=== PATIENT | female | born 1955 | race Caucasian/White ===

== ENCOUNTER → 2016-12-04 | Outpatient (CLI) | payer OTHER ==
[~2016-12-04] MED LIST: ALBUTEROL17 GM INH; AMLODIPINE BESYL5 MG PO; ANORO ELLIPTA1 EACH; BENZONATATE; COZAAR100 MG; DAYQUIL; DELTASONE20 MG PO; DICYCLOMINE HCL10 MG PO; EQUATE PO; FISH OIL 1,0001 CA2 PO; FISH OIL300 MG PO; FLEXERIL10 MG PO; GAS-X ULTRA ST180 MG PO; GREEN TEA SLIM PO; HYDROCHLOROTH12.5 MG PO; HYDROCODON-ACE1 EAC9 PO; IBUPROFEN800 MG PO; IMITREX25 MG PO; LASIX20 MG PO; LEVO-T125 MCG; LEVOTHYROXINE137 MCG PO; LEVOTHYROXINE150 MCG PO; LEVOXYL0.137 MG PO; LEVOXYL150 MC1 PO; LIPITOR40 MG; LIPITOR40 MG PO; LISINOPRIL PO; LISINOPRIL20 MG PO; LORTAB 5/500 TA1 TA1 PO; MEDI-MECLIZINE25 M1 PO; MOTION SICKNESS25 M4 PO; MOTRIN600 M2 PO; NYQUIL; OMEPRAZOLE20 M1; OSTEO BI-FLEX1 EAC4; PRAVASTATIN SOD40 MG PO; RANITIDINE HCL150 M1 PO; SIMVASTATIN40 MG PO; SYNTHROID0.15 MG PO; SYNTHROID125; SYNTHROID125 PO; TIZANIDINE HCL4 M1 PO; TYLOX 5-500 CA1 EACH PO; VITAMIN D50000 UNIT PO; ZESTRIL40 MG PO; ZITHROMAX PO
--- NOTE | ~2016-12-04 | CT57 ---
[facility] A Service of [facility] & [facility] RADIOLOGY TEXT RESULTS PATIENT: CAROLYN GELLER LOCATION: [facility] : 54 UNIT #: [id number] AGE: [address]: Nu Jackson SEX: F ORDER DR: [id number] [facility] [address] [place], [place] [address] [id number] O MR#: [id number] Acc #: [id number] NAME: CAROLYN GELLER : 1955 SEX: F STUDY DATE/TIME: 12/04/2016 9:17 UNIT: [facility] EDT ROOM: STUDY DESCRIPTION: CT Chest Wo Cont Attending Physician: Nu Jackson A.P.R.N. Referring Physician: Nu Jackson A.P.R.N. Ordering Physician: Nu Jackson A.P.R.N. Primary Care Physician: Petra Villatoro M.D. MEDICAL IMAGING REPORT This report is preliminary unless electronic signature is present EXAM CT chest without contrast INDICATIONS Cough for the past 2 months with shortness of air. PROCEDURE Noncontrast CT chest COMPARISON 12/22/2014. This CT exam was performed with one or more of the following radiation dose reduction techniques: automatic exposure control, adjustment of mA and/or kV according to patient size, and iterative reconstruction. FINDINGS No dense consolidation. Linear opacities right middle lobe, right lower lobe and left lower lobe. These are in keeping with scarring or atelectasis. No pleural fluid or pneumothorax. No adenopathy. There is a common duct stent in place partially included. No acute findings in the upper abdomen. No aggressive appearing bone lesion. IMPRESSION 1. No acute findings in the chest. 2. Linear atelectasis or scarring in both lung bases is similar to the previous study. Dictated by... Mitchel Shelton M.D. THIS IS AN ELECTRONICALLY VERIFIED REPORT Mitchel Shelton M.D. at 12/04/2016 4:52 PM [facility] A Service of [facility] & [facility] RADIOLOGY TEXT RESULTS PATIENT: CAROLYN GELLER LOCATION: [facility] : 54 UNIT #: [id number] AGE: [address]: Nu Jackson SEX: F ORDER DR: Terence TD: 12/04/2016 12:07 JOB #: [id number] MEDICAL IMAGING REPORT COPY
== END | disposition home or self-care (01) ==
LOC: CCAT 08:22
DX: R91.8 Other nonspecific abnormal finding of lung field (principal); R07.9 Chest pain, unspecified; R06.00 Dyspnea, unspecified; R05 Cough
CPT/HCPCS: 71250

== ENCOUNTER → 2016-12-19 | Outpatient (CLI) | payer OTHER ==
--- NOTE | ~2016-12-19 | MY11 ---
[facility] A Service of [facility] RADIOLOGY TEXT RESULTS PATIENT: CAROLYN GELLER [facility] 54 UNIT #: [id number] AGE: [address]: Petra Villatoro MD SEX: F ORDER DR: [id number] [facility] [address]. [place], [place] [address] [id number] O MR#: [id number] Acc #: [id number] NAME: CAROLYN GELLER : 1955 SEX: F STUDY DATE/TIME: 12/19/2016 10:54 [facility] ROOM: STUDY DESCRIPTION: MY Mammogram Screening Dig [place] Attending Physician: Petra Villatoro M.D. Ordering Physician: Petra Villatoro M.D. Primary Care Physician: Petra Villatoro M.D. MEDICAL IMAGING REPORT This report is preliminary unless electronic signature is present EXAM Digital screening mammogram 12/19/2016 HISTORY 61-year-old woman. No risk elevation. Annual screen. COMPARISON Outside mammograms from [facility] now available date 09/21/2015. FINDINGS Digital imaging of each breast was completed utilizing screening protocol. Review includes FDA-approved CAD device. Breast parenchyma is fatty-replaced. There is no suspicious breast mass. Occasional benign punctate calcification anterior third right breast upper, outer aspect. No suspicious mass. There is no architectural disturbance. IMPRESSION Negative mammogram. Annual screening recommended. Patient's over the age of 40 are entered into a reminder system with target due date for the next mammogram. BIRADS: 1 Negative Dictated by... Fernando Chery M.D. THIS IS AN ELECTRONICALLY VERIFIED REPORT Fernando Chery M.D. at 12/21/2016 8:04 AM DANIEL/waqar TD: 12/20/2016 16:18 [facility] A Service of [facility] RADIOLOGY TEXT RESULTS PATIENT: CAROLYN GELLER [facility] 54 UNIT #: [id number] AGE: [address]: Petra Villatoro MD SEX: F ORDER DR: JOB #: [id number] MEDICAL IMAGING REPORT COPY
== END | disposition home or self-care (01) ==
LOC: CWCC 10:07
DX: Z12.31 Encounter for screening mammogram for malignant neoplasm of breast (principal)
CPT/HCPCS: G0202

== ENCOUNTER → 2016-12-28 | Outpatient (CLI) | payer OTHER ==
--- NOTE | ~2016-12-28 | PFT ---
[id number] [facility] [address] [place] [address] [facility]. [place], [place] [address] [id number] O MR#: [id number] NAME: CAROLYN GELLER ROOM: SEX: F STUDY DATE/TIME: 01/26/2017 : 1955 AGE: 61 STUDY DESCRIPTION: Attending Physician: aTra Brizuela M.D. Referring Physician: Tara Brizuela M.D. Primary Care Physician: Petra Villatoro M.D. PULMONARY DIAGNOSTIC REPORT EXAM Pulmonary Function Study FINDINGS The patient used 2 inhalers on day of test so please interpret bronchodilator response with caution. The test meets ATS criteria for acceptability and repeatability. Please see scanned sheet for flow volume loops and actual lung volume values. Spirometry shows mild obstruction with good bronchodilator response. Diffusion capacity is low normal. PFT is consistent with moderate to severe COPD. Dictated by... Mihai Galindo TD: 01/26/2017 20:51 JOB #: [id number] PULMONARY DIAGNOSTIC REPORT Page 1 of 1
== END | disposition home or self-care (01) ==
LOC: CRC 12:23
DX: J44.9 Chronic obstructive pulmonary disease, unspecified (principal); K21.9 Gastro-esophageal reflux disease without esophagitis; G47.34 Idiopathic sleep related nonobstructive alveolar hypoventilation; R07.9 Chest pain, unspecified; Z87.891 Personal history of nicotine dependence
CPT/HCPCS: 94060; 94726; 94729

== ENCOUNTER 2017-01-22 13:11 | Emergency (ER) | payer OTHER ==
--- NOTE | ~2017-01-22 | CR278 ---
[facility] A Service [facility] RADIOLOGY TEXT RESULTS PATIENT: CAROLYN GELLER LOCATION: SED : 54 UNIT #: [id number] AGE: [address]: Ashley Fried APRN SEX: F ORDER DR: [id number] [address] [address] [id number] E MR#: [id number] Acc #: [id number] NAME: CAROLYN GELLER : 1955 SEX: F STUDY DATE/TIME: 01/22/2017 12:56 UNIT: SED ROOM: STUDY DESCRIPTION: CR Wrist 2 View Lt Attending Physician: Ashley Fried A.P.R.N. Ordering Physician: Ashley Dan A.P.R.N. Primary Care Physician: Petra Villatoro M.D. MEDICAL IMAGING REPORT This report is preliminary unless electronic signature is present. EXAM Left wrist 01/22/2017 HISTORY 61-year-old female in the ED complaining of left wrist and left shoulder pain beginning about 3 days ago. No reported acute injury. TECHNIQUE Limited two-view left wrist series. FINDINGS No fracture, dislocation or other acute osseous abnormality. 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 IMPRESSION 1. No acute osseous abnormality. 2. 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 Dictated by... Jaswant Morales M.D. THIS IS AN ELECTRONICALLY VERIFIED REPORT Jaswant Morales M.D. at 01/22/2017 3:58 PM LEXY/preethi TD: 01/22/2017 14:17 JOB #: [id number] [facility] A Service [facility] RADIOLOGY TEXT RESULTS PATIENT: CAROLYN GELLER LOCATION: SED : 54 UNIT #: [id number] AGE: [address]: Ashley Fried APRN SEX: F ORDER DR: MEDICAL IMAGING REPORT Page 1 of 1
--- NOTE | ~2017-01-22 | CR229 ---
[facility]. [facility] A Service of [facility] & [facility] RADIOLOGY TEXT RESULTS PATIENT: CAROLYN GELLER LOCATION: SED : 54 UNIT #: [id number] AGE: [address]: Ashley Fried APRN SEX: F ORDER DR: [id number] [address] [address] [id number] E MR#: [id number] Acc #: [id number] NAME: CAROLYN GELLER : 1955 SEX: F STUDY DATE/TIME: 01/22/2017 12:56 UNIT: SED ROOM: STUDY DESCRIPTION: CR Shoulder Min 2 View Lt Attending Physician: Ashley Fried A.P.R.N. Ordering Physician: Ashley Dan A.P.R.N. Primary Care Physician: Petra Villatoro M.D. MEDICAL IMAGING REPORT This report is preliminary unless electronic signature is present. EXAM Left shoulder series, 01/22/2017 HISTORY 61-year-old female in the ED complaining of 3-day history of left wrist and left shoulder pain. No reported acute injury. TECHNIQUE Three-view left shoulder series. FINDINGS Examination is negative. No fracture, dislocation, arthropathy or other osseous abnormality is demonstrated. IMPRESSION Negative left shoulder series. Dictated by... Jaswant Morales M.D. THIS IS AN ELECTRONICALLY VERIFIED REPORT Jaswant Morales M.D. at 01/22/2017 3:58 PM Iman TD: 01/22/2017 14:28 JOB #: [id number] MEDICAL IMAGING REPORT Page 1 of 1
== END 2017-01-22 14:19 | disposition home or self-care (01) ==
LOC: SED 13:11
DX: M13.832 Other specified arthritis, left wrist (principal); M75.92 Shoulder lesion, unspecified, left shoulder; I10 Essential (primary) hypertension; Z90.49 Acquired absence of other specified parts of digestive tract; Z79.899 Other long term (current) drug therapy
CPT/HCPCS: 73030; 73100; 99284

== ENCOUNTER 2017-02-28 14:02 | Emergency (ER) | payer OTHER ==
[2017-02-28 15:41] LABS: BASOPHIL# 0.1 X10e3 (0-0.3); BASOPHIL% 1.1 % (0-2.5); EOSINOPHIL# 0.3 X10e3 (0-0.7); EOSINOPHIL% 4.2 % (0.0-7.0); HEMATOCRIT 42.4 % (35.0-45.0); HEMOGLOBIN 14.2 gm/dL (12.0-16.0); LYMPHOCYTE# 1.9 X10e3 (1.0-3.5); LYMPHOCYTE% 22.5 % (17.0-45.0); MEAN CELL VOLUME 86.2 FL (83-96); MEAN CORPUSCULAR HEMOGLOBIN 28.8 PG (28-34); MEAN CORPUSCULAR HGB CONC 33.4 g/dL (30-36); MEAN PLATELET VOLUME 7.8 FL (6.5-11.5); MONOCYTE# 0.5 X10e3 (0-1.0); MONOCYTE% 5.5 % (3.0-12.0); NEUTROPHIL# 5.5 X10e3 (1.5-7.1); NEUTROPHIL% 66.7 % (40-75); PLATELET COUNT 258 X10e3 (140-420); RED BLOOD COUNT 4.92 X10e (3.90-5.30); RED CELL DISTRIBUTION WIDTH 13.2 % (11.0-15.5); WHITE BLOOD COUNT 8.2 X10e3 (4.0-10.5)
[2017-02-28 15:43] LABS: DIFF IND NO
[2017-02-28 16:28] LABS: ALBUMIN SERUM 4.5 g/dL (3.5-5.0); BILIRUBIN, DIRECT 0.1 mg/dL (0.0-0.2); BILIRUBIN,INDIRECT 1.2 mg/dL (0.0-0.9); BILIRUBIN,TOTAL 1.3 mg/dL (0.2-2.0); PROTEIN TOTAL SERUM 7.4 g/dL (6.0-8.3)
[2017-02-28 17:37] LABS: URINE SOURCE CLEAN CATCH
[2017-02-28 17:53] LABS: URINE APPEARANCE CLEAR; URINE BILIRUBIN NEG (NEG); URINE BLOOD 1+ (NEG); URINE COLOR YELLOW; URINE GLUCOSE NEG (NEG); URINE KETONE NEG (NEG); URINE LEUKOCYTE ESTERASE NEG (NEG); URINE NITRATE NEG (NEG); URINE PROTEIN NEG (NEG); URINE SPECIFIC GRAVITY 1.009 (1.003-1.035); URINE UROBILINOGEN 0.2 MG/DL (NEG)
[2017-02-28 17:58] LABS: URBCS1 AUWI 0-2 /[HPF] (0-2); URINE BACTERIA AUWI NEG (NEGATIVE); URINE SQUAMOUS EPITHELIAL CELL NONE SEEN /[HPF]; UWBCS1 AUWI 0-2 (0-5)
[2017-02-28 18:13] LABS: CULTURE INDICATED? NO
[2017-02-28 20:14] LABS: BUN/CREATININE RATIO 15.55; CALCIUM SERUM 9.5 mg/dL (8.4-10.2); CREATININE SERUM 0.9 mg/dL (0.6-1.4); GLOM FILT RATE Estimated 68.6 mL/min (>60); POTASSIUM 3.8 mmol/L (3.5-5.1)
== END 2017-02-28 22:04 | disposition home or self-care (01) ==
LOC: CED 14:02
PROVIDERS: Emergency Medicine
DX: R07.89 Other chest pain (principal); K21.9 Gastro-esophageal reflux disease without esophagitis; E78.5 Hyperlipidemia, unspecified; Z98.51 Tubal ligation status; Z90.49 Acquired absence of other specified parts of digestive tract; Z91.041 Radiographic dye allergy status
CPT/HCPCS: 80048; 80076; 81003; 85025; 96374; 96375; 99284; J1170; J1885; J2270; J2405

== ENCOUNTER → 2017-06-25 | Outpatient (CLI) | payer OTHER ==
--- NOTE | ~2017-06-25 | ST ---
Unit #: [id number] #: [id number] Patient: CAROLYN GELLER [id number] [address] [address] [id number] O MR#: [id number] NAME: CAROLYN GELLER : 1955 SEX: F STUDY DATE/TIME: 06/25/2017 UNIT: CEKG ROOM: STUDY DESCRIPTION: Stress Test Attending Physician: Hosea Webb M.D. Primary Care Physician: Petra Villatoro M.D. CARDIOLOGY REPORT EXAM Stress Test DESCRIPTION Baseline EKG - normal sinus rhythm, normal EKG. Resting heart rate is 66 per minute, blood pressure 162/85. This 62-year-old patient was exercised on a Kobe protocol for 6 minutes achieving a heart rate of 141 per minute. Peak blood pressure was 180/90. Exercise was terminated because of fatigue. No ischemic changes noted. No arrhythmias noted. Blood pressure response was normal. Maximum workload attained is 7.0 METs. IMPRESSION 1. Negative stress test for ischemia. 2. No arrhythmias noted. 3. Normal blood pressure response to exercise. Dictated by... Mihai Crabtree/bin TD: 06/26/2017 16:09 JOB #: [id number] CARDIOLOGY REPORT Page 1 of 1 X Matt Arango MD CARDIOLOGY REPORT
== END | disposition home or self-care (01) ==
LOC: CEKG 08:44
DX: R07.89 Other chest pain (principal)
CPT/HCPCS: 93017